=== PATIENT | female | born 1990 | race Caucasian/White ===

== ENCOUNTER 2020-11-12 12:38 | Inpatient (IN) | payer BC ==
[2020-11-12] MEDS ORDERED: Lidocaine 1% (PF) 30 ML VIAL SC PRN (13:05)
[2020-11-12] MEDS ORDERED: hydrALAZINE 20 MG/ML VIAL SLOW IVP PRN ×2 (13:05→19:51)
[2020-11-12] MEDS ORDERED: Acetaminophen 500 MG TAB PO PRN (13:05)
[2020-11-12] MEDS ORDERED: Diphenoxylate HCl/Atropine Tablet PO PRN ×2 (13:05)
[2020-11-12] MEDS ORDERED: Promethazine HCl 25 MG/ML VIAL IM PRN ×2 (13:05→14:35)
[2020-11-12] MEDS ORDERED: Methylergonovine 0.2 MG/ML VIAL IM PRN (13:05)
[2020-11-12] MEDS ORDERED: Ibuprofen 800 MG TAB PO PRN (13:05)
[2020-11-12] MEDS ORDERED: HYDROcodone/Acetaminophen 5/325 mg Tablet PO PRN ×4 (13:05→19:51)
[2020-11-12] MEDS ORDERED: Carboprost 250 MCG/ML AMP IM PRN (13:05)
[2020-11-12] MEDS ORDERED: NS w/ Oxytocin 30 units 500 ML IV PRN (13:05)
[2020-11-12] MEDS ORDERED: Ondansetron PF 4 MG/2 ML Vial IVP PRN ×3 (13:05→19:51)
[2020-11-12] MEDS ORDERED: Misoprostol 200 MCG TAB PR PRN (13:05)
[2020-11-12] MEDS ORDERED: Butorphanol Tartrate 1 MG/ML VIAL SLOW IVP PRN (13:05)
[2020-11-12] MEDS: Lactated Ringer's 1,000 ML IV SCH ×3 (13:15→18:35)
[2020-11-12] MEDS ORDERED: Fentanyl 4 mcg/Bup 0.1% Cadd 100 ML ONE (13:19)
[2020-11-12 13:46] LABS: Mean Corpuscular HGB CONC 33.4 g/dL (32.0-36.0); Mean Corpuscular Hemoglobin 31.4 pg (27.0-31.0); Platelet Count 243 thou/uL (130-400); RBC Distribution Width 12.4 % (11.5-14.5); Red Blood Cell (RBC) Count 4.13 mill/uL (4.20-5.40); White Blood Cell (WBC) Count 16.8 thou/uL (4.8-10.8)
[2020-11-12 13:47] VITALS: BMI 34.4
[2020-11-12] MEDS ORDERED: FLU VACC QS2020-21(6MOS UP)/PF 60 MCG/0.5 ML SYRINGE IM ONE (14:00)
[2020-11-12 14:26] LABS: HBSAg Index 0.22 S/CO (0-0.99); Hep B Surf Ag Non-Reactive S/CO (NonReactive)
[2020-11-12 14:27] LABS: Syphilis Antibody Nonreactive (Nonreactive); Syphilis Antibody Index 0.06 S/CO (<1.00 Non-Reactive)
[2020-11-12] MEDS ORDERED: Naloxone HCl 0.4 mg/ml Vial IVP PRN ×2 (14:35)
[2020-11-12] MEDS ORDERED: diphenhydrAMINE 50 MG/ML VIAL IVP PRN (14:35)
[2020-11-12] MEDS ORDERED: ePHEDrine 50 MG/ML VIAL SLOW IVP PRN (14:35)
[2020-11-12] MEDS ORDERED: Acetaminophen 325 MG TAB PO PRN (14:35)
[2020-11-12] MEDS ORDERED: Lactated Ringer's 500 ML IV PRN (14:35)
[2020-11-12] MEDS ORDERED: Communication Order-Pharmacy FS SCH (14:45)
[2020-11-12] MEDS ORDERED: Fentanyl 4 mcg/Bupivacaine 0.1% Cassette 100 ML EPIDURAL SCH (14:45)
[2020-11-12] MEDS ORDERED: Lidocaine 1% (PF) 30 ML VIAL ONE (15:58)
--- NOTE | 2020-11-12 17:19 | PDOC.LDHP ---
Labor and Delivery H&P Chief complaint: contractions HPI: patient was having mild contractions all night, but they got really intense at 10am. She affirms movement. Denies SROM or vaginal bleeding. Current gestational age (weeks): 39 Due date: 11/17/20 Grav: 5 Para: 1 OB History Details: 2017 40 week 8.7 2019 2018 [facility] Current complications: none Current medications: pre-gerardo vitamins Allergies/Adverse Reactions: Allergies Allergy/AdvReac Type Severity Reaction Status Date / Time No Known Allergies Allergy Verified 11/12/20 13:47 Social history: none - Physical Exam Vital signs reviewed and normal: yes General: resting Lungs: nonlabored breathing FHT: category 1 - Vaginal Exam cm dilated: 8 Effacement: 90% Station: 0 - OB Labs Blood type: O RH: positive Antibody Screen: negative HIV: negative RPR: negative HEPSAg: negative 1 hour GCT: negative GBS: negative Urine drug screen: negative Rubella: immune - Assessment L&D Assessment: term patient in labor - Plan Plan: admit to L&D, informed consent obtained, anesthesia consult for pain management
--- NOTE | 2020-11-12 17:38 | PDOC.OPDEL ---
OB Operative/Delivery Note Delivery Dr/Surgeon: Light Pre-Delivery Diagnosis: active labor Procedure/Post Delivery Dx: spontaneous vaginal delivery Weeks gestation: 39 Anesthesia: epidural - Findings A Sex: female Weight: 8 lb 15 oz - 1 min: 8 - 5 min: 9 - Additional Findings/Plan Placenta delivered: spontaneous Repaired Obstetrical Laceration: 2nd degree Estimated blood loss: 505mL QBL Post delivery plan: routine recovery
--- NOTE | 2020-11-12 19:23 | PDOC.BPN ---
- Brief Progress Note Encounter Date: 11/12/20 Encounter Time: 19:00 To room for evaluation of patient "seizure." Patient felt dizzy walking back from the restroom and had a near syncopal episode but did not lose consciousness. She had some jerking movements but was able to talk and answer questions appropriately immediately afterwards. Vitals wnl. No significant bleeding. Continue to monitor.
[2020-11-12] MEDS ORDERED: Misoprostol 200 MCG TAB VAG PRN (19:51)
[2020-11-12] MEDS ORDERED: Bisacodyl 10 MG SUPP PR PRN (19:51)
[2020-11-12] MEDS ORDERED: Milk Of Magnesia 30 ML UDCUP PO PRN (19:51)
[2020-11-12] MEDS ORDERED: Benzocaine-Menthol 82.5 ML CAN TOP PRN (19:51)
[2020-11-12] MEDS ORDERED: Adacel (T-DAP) 0.5 ML SYRINGE IM ONE (19:51)
[2020-11-12] MEDS ORDERED: NS / Oxytocin 40 units/1000ml 1,000 ML IV SCH (19:51)
[2020-11-12] MEDS ORDERED: NS w/ Oxytocin 30 units 500 ML ONE (20:24)
[2020-11-12] MEDS ORDERED: Sodium Chloride 0.9% 10 ML ONE (20:25)
[2020-11-12] MEDS: Docusate Calcium (SURFAK) 240 MG CAP PO SCH (21:54)
[2020-11-12] MEDS: Ibuprofen 800 MG TAB PO SCH (21:54)
[2020-11-12] MEDS: Calcium Carbonate 500 MG ChewTAB PO PRN (21:55)
[2020-11-13] MEDS: Calcium Carbonate 500 MG ChewTAB PO PRN (03:07)
[2020-11-13] MEDS: Ibuprofen 800 MG TAB PO SCH ×2 (05:06→13:43)
[2020-11-13] MEDS: Ferrous Sulfate 325 MG TAB PO SCH ×2 (07:29→19:13)
[2020-11-13] MEDS ORDERED: Prenatal Vitamin 1 TAB PO SCH (09:00)
[2020-11-13] MEDS: Docusate Calcium (SURFAK) 240 MG CAP PO SCH (09:49)
[2020-11-13 13:47] LABS: SARS-CoV-2 PCR by NAA Not Detected (NotDetected)
[2020-11-13 17:43] VITALS: BP 120/73; TEMP 97.9
== END 2020-11-13 20:49 | disposition home or self-care (01) | DRG 807 ==
LOC: L&D/OP 12:38 → L&D 13:05 → 3SW 21:40
PROVIDERS: ADMIT Obstetrics & Gynecology; ATTEND Obstetrics & Gynecology
PROC: 10E0XZZ Delivery of Products of Conception, External Approach (ICD-10-PCS; principal; 2020-11-13)
PROC: 0KQM0ZZ Repair Perineum Muscle, Open Approach (ICD-10-PCS; 2020-11-13)
DX: O70.1 Second degree perineal laceration during delivery (principal); Z37.0 Single live birth; Z3A.39 39 weeks gestation of pregnancy
CPT/HCPCS: 36415; 51702; 85027; 86780; 86850; 86900; 86901; 87340; 87635; 90471; 90662; 99285; G0008; J2590; U0003; U0005